=== PATIENT | male | born 1985 | race Caucasian/White ===

== ENCOUNTER 2018-04-03 16:40 | Emergency (ER) | payer OTHER ==
[2018-04-03 17:03] VITALS: TEMP 97.4; BMI 26.4
[2018-04-03] MEDS ORDERED: KETOROLAC TROMETHAMINE 30 MG/1 ML VIAL IM ONE (17:33)
[2018-04-03] MEDS ORDERED: diazePAM 5 MG TABLET PO ONE (17:33)
[2018-04-03] MEDS ORDERED: diazePAM 5 MG TABLET ONE (17:35)
[2018-04-03] MEDS ORDERED: KETOROLAC TROMETHAMINE 30 MG/1 ML VIAL ONE (17:35)
--- NOTE | 2018-04-03 17:51 | PDOC ---
History of Present Illness - General Chief Complaint: Injury Stated Complaint: FALL History Source: Patient Exam Limitations: No Limitations - History of Present Illness Initial Comments: 04/03/18 17:47 32-year-old male no past medical history here today after a slip and fall while in the parking lot. Patient states he was leaving work was brushing the snow off his car sensibly had a slipped backwards and fell landing on his back. Denies LOC but is complaining of severe headache and neck pain. Denies any focal weakness numbness or tingling pain is worse with movement no previous known back injuries or neck injuries only takes Adderall for medication. Happened just prior to arrival was placed in a c-collar and transported via EMS to the hospital Past History - Past Medical History Allergies/Adverse Reactions: Allergies Allergy/AdvReac Type Severity Reaction Status Date / Time No Known Allergies Allergy Verified 04/03/18 17:00 Home Medications: Ambulatory Orders Dextroamphetamine/Amphetamine [Adderall Xr 30 mg Capsule] 30 mg PO DAILY Diazepam [Valium] 5 mg PO Q8H PRN #10 tablet MDD 3 04/03/18 Ibuprofen [Motrin -] 600 mg PO TID PRN #90 tablet MDD 3 04/03/18 COPD: No Other medical history: ADHD - Suicide/Smoking/Psychosocial Hx Smoking History: Never smoked Have you smoked in the past 12 months: No Information on smoking cessation initiated: No Hx Alcohol Use: No Drug/Substance Use Hx: No Review of Systems - Review of Systems Constitutional: No: Chills, Diaphoresis, Fever HEENTM: No: Eye Pain Respiratory: No: Cough, Orthopnea Cardiac (ROS): No: Chest Pain, Edema Musculoskeletal: Yes: Back Pain, Neck Pain Integumentary: No: Bruising Neurological: Yes: Headache. No: Numbness All Other Systems: Reviewed and Negative *Physical Exam - Vital Signs Last Vital Signs Temp Pulse Resp BP Pulse Ox 97.4 F L 98 H 18 155/104 H 98 04/03/18 17:01 04/03/18 17:01 04/03/18 17:01 04/03/18 17:01 04/03/18 17:01 - Physical Exam Comments: 04/03/18 17:49 Awake alert no acute distress head is atraumatic. C-collar is in place. Upon removal patient has midline cervical spinal tenderness lungs are clear bilaterally heart is regular without any murmurs rubs or gallops abdomen is soft nontender no ecchymosis pelvis is stable extremities are warm and well- perfused except for the feet which are cold to palpation as patient was laying in wet clothing. 2+ pulses bilaterally no midline lumbar spinal tenderness patient has paraspinal tenderness in the lumbosacral region 5 out of 5 strength in all 4 extremities GCS 15 Moderate Sedation - Procedure Monitoring Vital Signs: Procedure Monitoring Vital Signs Temperature 97.4 F L 04/03/18 17:01 Pulse Rate 98 H 04/03/18 17:01 Respiratory Rate 18 04/03/18 17:01 Blood Pressure 155/104 H 04/03/18 17:01 O2 Sat by Pulse Oximetry (%) 98 04/03/18 17:01 ED Treatment Course - RADIOLOGY Radiology Studies Ordered: Category Date Time Status CERVICAL SPINE CT W/O CONTR [CT] Stat CT Scan 04/03/18 17:[address] WITHOUT CONTRAST [CT] Stat CT Scan 04/03/18 17:32 Ordered Medical Decision Making - Medical Decision Making 04/03/18 17:50 32-year-old status post slip and fall with likely whiplash injury to his neck and contusions to his back. Differential includes cervical spine injury due to the tenderness along his spine we'll obtain CT head and neck will be given NSAIDs and muscle relaxers for his symptoms. Will be reassessed following his imaging if negative will likely discharge home with follow-up PCP as needed 04/03/18 20:48 pt c spine clinically cleared. ct with herniated disc. pt full range of motion. normal nuerological exam. sensation intact bilat feet ( after warming toes). dc home with nuerology followup. *DC/Admit/Observation/Transfer Diagnosis at time of Disposition: Cervical disc disease, Neck strain - Discharge Dispostion Disposition: HOME Condition at time of disposition: Improved Decision to Admit order: No - Prescriptions Prescriptions: Diazepam [Valium] 5 mg PO Q8H PRN #10 tablet MDD 3 PRN Reason: Pain Ibuprofen [Motrin -] 600 mg PO TID PRN #90 tablet MDD 3 PRN Reason: Pain - Referrals Referrals: Bethel Metcalf MD [Staff Physician] - - Patient Instructions Printed Discharge Instructions: DI for Closed Head Injury, DI for Whiplash Additional Instructions: you should take motrin 600 mg every 8 hrs as needed for pain. take with food. take valium 5 mg every 8 hrs as needed for muscle spasm. do not drive after taking medication and do not mix with alcohol. follow up with a nuerologist for your herniated disc in your neck. if you suddenly develop numbness, or weakness in your arms or legs or any concerns you should seek emergent evaluation. you will be sore for up to on week. no contact sports or strenuous activity until without headache or pain for at least one week. - Post Discharge Activity Forms/Work/School Notes: Back to Work
[2018-04-03 18:55] VITALS: BP 152/96; PULSE 96
[2018-04-03] MEDS ORDERED: ACETAMINOPHEN 325 MG TABLET (FP) PO ONE (21:19)
[2018-04-03] MEDS ORDERED: ACETAMINOPHEN 325 MG TABLET (FP) ONE (21:20)
== END 2018-04-03 21:53 | disposition home or self-care (01) ==
LOC: JER 16:40
PROC: 3E0233Z Introduction of Anti-inflammatory into Muscle, Percutaneous Approach (ICD-10-PCS; principal; 2018-04-03)
DX: S16.1XXA Strain of muscle, fascia and tendon at neck level, initial encounter (principal); W00.0XXA Fall on same level due to ice and snow, initial encounter; Y93.89 Activity, other specified; Y92.481 Parking lot as the place of occurrence of the external cause; M50.90 Cervical disc disorder, unspecified, unspecified cervical region; F90.9 Attention-deficit hyperactivity disorder, unspecified type
CPT/HCPCS: 70450-TC; 72125-TC; 99283-25